=== PATIENT | female | born 1940 | race Caucasian/White ===

== ENCOUNTER 2024-08-21 14:48 | Emergency (ER) | payer MEDICARE, BC ==
[~2024-08-21] VITALS: Ht 167.6 cm; Wt 46.8 kg
[2024-08-21 14:52] VITALS: BP 161/69; PULSE 80; RESP 16; TEMP 97.6; O2SAT 97
[2024-08-21] MEDS: proparacaine 0.5% ophthalmic drops 15ml EACHEYE ONE (15:45)
[2024-08-21] MEDS ORDERED: ERYT1OIN6 LEFTEYE (16:04)
--- NOTE | 2024-08-21 16:04 | Physician Documentation ---
History of Present Illness ~ Chief Complaint: Eye Pain Stated Complaint: EYE PAIN Time Seen by MD: 15:15 OK to notify your PCP?: Yes Primary Medical Doctor: DARBYK Source: patient Mode of Arrival: POV Exam Limitations: no limitations HPI 84-year-old female presents with left eye redness since this afternoon. She denies any pain or vision disturbances. She mentions that 2 days ago she thought she had a tweak in her eye so she was able to pick it out, and her eye appeared normal afterwards. No blood thinners. Medication Reconciliation Allergies: Coded Allergies: No Known Allergies (Unverified , 08/21/24) Scheduled Erythromycin Base Opth. Ointment* (Erythromycin Opth. Ointment*), 1 APPLIC LEFTEYE Q4HWA Review of Systems All Other Systems at this time: Reviewed and Negative Physical Exam Vital Signs: RN Vital Signs have been reviewed: Yes, Temperature: 97.6, Source: Temporal, Heart Rate: 80, Respiratory Rate: 16, BP: 161/69, Pulse Oximetry: 97, Weight: 46.820 Oxygen Flow Rate: 0 Pulse Oximetry Reflects: adequate oxygenation Physical Exam General: Alert, no apparent distress. HEENT: PERRL, EOMI, moist mucous membranes. Large subconjunctival hemorrhage to the medial aspect of left eye. No fluorescein uptake noted. Neck: Full range of motion. Respiratory: Lungs clear, no respiratory distress. Chest: No accessory muscle use. Cardiovascular: Regular rate and rhythm, no murmurs. Gastrointestinal: Soft, nontender, nondistended. Bowels sounds present. Extremities: Normal range of motion, no deformity. Neurologic: Oriented x4. Psychiatric: Normal mood and affect. Skin: Normal color, warm and dry. No edema, no ecchymosis. Procedures Eye Procedure Alcaine Drops Administered: Yes Procedure Note Use fluorescein stain to left eye with no uptake. Progress Results/Orders Reviewed/noted all lab results: Yes Results/Orders Completed Orders - CALLY NAVAS PROTOTYPE CARPENTER Proparacaine Ophth Solution (Alcaine Oph (08/21/24 15:25) Vital Signs 08/21/24 14:52 Temp 97.6 Pulse 80 Resp 16 B/P (MAP) 161/69 Pulse Ox 97 O2 Flow Rate 0 Medical Decision Making Additional info obtained from: family Findings 84-year-old female with painless sub conjunctival hemorrhage of the medial aspect of the left eye does not cross into the iris. I performed an eye exam and she had no visual disturbances and no fluorescein uptake and full range motion of the eye. No foreign body was not exam either. Consulted with WILFRED Niño regarding this patient and she did not exam as well and agrees that this is a subconjunctival hemorrhage. Due to the previous foreign body being seen, I prescribed erythromycin ointment which was sent to her pharmacy. I advised the patient that this should get better in the next couple of weeks and if it does not she definitely needs to see Ophthalmology. She should follow up with the primary care provider in the next 3 days and return back here for any new or worsening symptoms. Eye Diff. Dx: Considerations: Include: Conjuctivits-allergic, Conjuctivitis-bacterial, Corneal laceration, Corneal ulceration, Foreign body- conjuctiva, Foreign body-corneal, Globe rupture Departure Disposition: HOME / SELF CARE / HOMELESS Impression: Primary Impression: Subconjunctival hemorrhage of left eye Condition: Stable Discharge Instructions: Subconjunctival Hemorrhage Additional Instructions: Please use the erythromycin as directed. This should improve in the next 2 weeks or so. Do not pick at your eye. Follow up with her primary care provider in the next 3 days and see an log operations coordinator if this gets worse. You can return back here for any new or worsening symptoms Referrals: NO PRIMARY CARE PROVIDER (PCP) Prescriptions Erythromycin Base Opth. Ointment* (Erythromycin Opth. Ointment*) 1 Gm Tube 1 APPLIC LEFTEYE Q4HWA for 7 Days, #1 EACH Prov: CALLY NAVAS 08/21/24 Education Educated: Patient Educated regarding: diagnosis, treatment, prognosis, need for follow up Signature Scribe Signature: . Attestation: Scribed for Cally Navas by Cally High NP . 08/21/24 16:24 CALLY NAVAS Aug 21, 2024 16:04
== END 2024-08-21 16:12 | disposition home or self-care (01) ==
LOC: ER 14:49
DX: H11.32 Conjunctival hemorrhage, left eye (principal); Z79.899 Other long term (current) drug therapy
CPT/HCPCS: 99283